=== PATIENT | female | born 1985 | race Caucasian/White ===

== ENCOUNTER 2017-04-26 18:04 | Inpatient (IN) | payer MEDICAID ==
[~2017-04-26] VITALS: Ht 167.6 cm; Wt 94.1 kg
[2017-04-26 19:05] LABS: BASOPHIL % 0.2 % (0-2); RED CELL DISTRIBUTION WIDTH 14.1 % (11.5-14.5)
[2017-04-26 19:08] LABS: CALCIUM 8.6 mg/dL (8.5-10.1); CARBON DIOXIDE 30.4 mmol/L (21-32); CHLORIDE SERUM 101 mmol/L (98-107); CREATININE SERUM 0.7 mg/dL (0.6-1.0); GFR1 > 60 mL/min; GLUCOSE SERUM 119 mg/dL (74-106); PLATELET COUNT 97 x10^3mcL (130-400); POTASSIUM SERUM 4.1 mmol/L (3.5-5.1); SODIUM SERUM 141 mmol/L (136-145)
[2017-04-26 19:13] LABS: ALBUMIN 3.6 g/dL (3.4-5.0); ALKALINE PHOSPHATASE 141 U/L (46-116); ALT/SGPT 133 U/L (14-59); AST/SGOT 129 U/L (15-37); BILIRUBIN TOTAL 1.76 mg/dL (0.20-1.00); LIPASE 54 IU/L (73-393); TOTAL PROTEIN, SERUM 6.9 g/dL (6.4-8.2)
[2017-04-26 19:14] LABS: AMYLASE 18 U/L (25-115)
[2017-04-26 22:01] LABS: CHOLESTEROL/HDL RATIO 3.6
[2017-04-26 22:10] LABS: FREE T4 0.89 ng/dL (0.76-1.46); FREE THYROXINE INDEX 2.2 ug/dL (1.4-4.5); T3 TOTAL 1.24 ng/mL; T4(THYROXINE) 7.7 ug/dL (4.7-13.3)
[2017-04-26 22:18] VITALS: BP 106/62; BP 97/64
[2017-04-26 22:23] VITALS: Ht 167.6 cm; Wt 94.1 kg
[2017-04-27 06:27] LABS: BASOPHIL % 0.4 % (0-2)
[2017-04-27 06:37] VITALS: BP 102/62
[2017-04-27 06:48] LABS: CALCIUM 7.6 mg/dL (8.5-10.1); CARBON DIOXIDE 30.4 mmol/L (21-32); CHLORIDE SERUM 103 mmol/L (98-107); CREATININE SERUM 0.6 mg/dL (0.6-1.0); GFR1 > 60 mL/min; GLUCOSE SERUM 95 mg/dL (74-106); MAGNESIUM 1.5 mg/dL (1.8-2.4); PHOSPHOROUS 2.4 mg/dL (2.5-4.9); POTASSIUM SERUM 3.3 mmol/L (3.5-5.1); SODIUM SERUM 140 mmol/L (136-145)
[2017-04-27 07:22] LABS: PLATELET COUNT 71 x10^3mcL (130-400)
[2017-04-27 09:21] VITALS: BP 111/71
[2017-04-27 13:45] VITALS: BP 108/62
[2017-04-27 15:02] LABS: microscopic required? YES; urine erythrocyte 2+ (NEGATIVE)
[2017-04-27 15:15] LABS: AMPHETAMINE QUAL UR NONE DETECTED (NEG <=1000)
[2017-04-27 17:06] VITALS: BP 105/59
[2017-04-27 21:04] VITALS: BP 107/65
[2017-04-28 05:44] VITALS: BP 108/67
[2017-04-28 06:17] LABS: BASOPHIL % 0.6 % (0-2)
[2017-04-28 06:32] LABS: ALKALINE PHOSPHATASE 109 U/L (46-116); ALT/SGPT 90 U/L (14-59); AST/SGOT 80 U/L (15-37); BILIRUBIN TOTAL 0.9 mg/dL (0.20-1.00); CALCIUM 7.5 mg/dL (8.5-10.1); CARBON DIOXIDE 32.3 mmol/L (21-32); CHLORIDE SERUM 103 mmol/L (98-107); CREATININE SERUM 0.6 mg/dL (0.6-1.0); GFR1 > 60 mL/min; GLUCOSE SERUM 90 mg/dL (74-106); POTASSIUM SERUM 3.3 mmol/L (3.5-5.1); SODIUM SERUM 139 mmol/L (136-145)
[2017-04-28 06:45] LABS: ALBUMIN 2.9 g/dL (3.4-5.0); TOTAL PROTEIN, SERUM 5.7 g/dL (6.4-8.2)
[2017-04-28 06:46] LABS: PLATELET COUNT 67 x10^3mcL (130-400); RED CELL DISTRIBUTION WIDTH 14.6 % (11.5-14.5)
[2017-04-28 08:00] LABS: MAGNESIUM 1.7 mg/dL (1.8-2.4); PHOSPHOROUS 2.5 mg/dL (2.5-4.9)
[2017-04-28 09:51] VITALS: BP 96/61
[2017-04-28 14:15] VITALS: BP 123/72
[2017-04-28] MEDS ORDERED: COLACE100 MG PO (15:51)
[2017-04-28] MEDS ORDERED: NORCO1 TA2 PO (15:51)
[2017-04-28] MEDS ORDERED: PANTOPRAZOLE SO40 M1 PO (15:53)
[2017-04-28 16:09] VITALS: BP 123/72
[2017-04-28] MEDS ORDERED: CAR1 PO (16:13)
== END 2017-04-28 18:10 | disposition home or self-care (01) | DRG 249 ==
LOC: ED 18:04 → MU 20:45 → DU 20:45 → MU 04-28 08:49
PROVIDERS: Emergency Medicine; Internal Medicine Gastroenterology; ADMIT Family Medicine
PROC: 0DB78ZX Excision of Stomach, Pylorus, Via Natural or Artificial Opening Endoscopic, Diagnostic (ICD-10-PCS; principal; 2017-04-27 12:00)
DX: K52.9 Noninfective gastroenteritis and colitis, unspecified (principal); N17.0 Acute kidney failure with tubular necrosis; E43 Unspecified severe protein-calorie malnutrition; K21.9 Gastro-esophageal reflux disease without esophagitis; K76.0 Fatty (change of) liver, not elsewhere classified; K80.20 Calculus of gallbladder without cholecystitis without obstruction; E87.6 Hypokalemia; E83.42 Hypomagnesemia; E83.39 Other disorders of phosphorus metabolism; E78.5 Hyperlipidemia, unspecified; E66.9 Obesity, unspecified; Z68.33 Body mass index [BMI] 33.0-33.9, adult
CPT/HCPCS: 43235; 78226; 83880; 84439; A9537; C9113; J0295; J1200; J1610; J1885; J2250; J2310; J2405; J3010; J3475; J3480; J3490; J7030; Q0092